=== PATIENT | male | born 1950 | race Two or more races ===

== ENCOUNTER 2024-11-27 00:29 | Inpatient (IN) | payer OTHER ==
[~2024-11-27] VITALS: Ht 182.9 cm; Wt 108.4 kg
[2024-11-27] MEDS ORDERED: ENTRESTO 49 MG1 EACH PO (00:42)
[2024-11-27] MEDS ORDERED: LASIX20 MG PO (00:43)
[2024-11-27] MEDS ORDERED: CARVEDILOL12.5 MG (00:43)
[2024-11-27] MEDS ORDERED: ELIQUIS5 MG PO (00:43)
[2024-11-27] MEDS ORDERED: HYDRALAZINE HC100 MG PO (00:43)
[2024-11-27] MEDS ORDERED: EPLERENONE25 MG PO (00:43)
[2024-11-27] MEDS ORDERED: UROXATRAL10 MG PO (00:44)
[2024-11-27] MEDS ORDERED: FARXIGA10 MG PO (00:44)
[2024-11-27] MEDS ORDERED: OXYBUTYNIN CHLO10 MG PO (00:45)
--- NOTE | 2024-11-27 00:45 | NUR ---
SE RECIBE MASCULINO ALERTA Y ORIENTADO X3 EN [facility] POR CHOLECYSTITIS ACEPTADO POR LA DRA NIEVES. SE MIDEN S/V Y SE UBICA.
[2024-11-27] MEDS ORDERED: 0.9 % SODIUM CHLORIDE 1,000 ML IV ONE (01:30)
--- NOTE | 2024-11-27 01:48 | NUR ---
SE ORIENTA A PACIENTE SOBRE TRATAMIENTO MEDICO, REFIERE ENTENDER. SE COLECTAN MUESTRAS DE LABORATORIO BAJO MEDIDAS ASEPTICAS. PACIENTE PREIAMENTE CANALIZADO EN ANTEBRAZO DORIE. SE COLOCAN IVF'S DIMITRIS ORDEN MEDICA. SE NOTIFICA X-RAY Y SE REALIZA EKG EL CUAL SE PRESENTA A DR BILLS.
[2024-11-27 02:03] LABS: BASO % 0.0 % (0.1-1.2); EOS # 0.00 (0.04-0.54); EOS % 0.0 % (0.7-7.0); LYMPH # 0.81 (1.18-3.74); LYMPH % 20.2 % (19.3-53.1); MEAN PLATELET VOLUME 11.80 fl (9.4-12.4); MONO # 0.10 (0.24-0.82); MONO % 2.5 % (4.7-12.5); NEUT # 3.10 (1.56-6.13); NEUT % 77.3 % (34.0-71.1); RED CELL DISTRIBUTION WIDTH 13.1 % (11.6-14.4)
[2024-11-27 02:22] LABS: INR 1.29
[2024-11-27 02:26] LABS: ALT/SGPT 37.0 U/L (12-78); AST/SGOT 38.0 U/L (15-37); BILIRUBIN TOTAL 4.75 mg/dL (0.3-1.2); BILIRUBIN,CONJUGATED 3.59 mg/dL (0.0-0.2); BUN CREA RATIO 29.0 (7.0-25.0); CREATININE SERUM 1.11 mg/dL (0.70-1.30); GFR 64.58; GLOBULINA 4.4 G/DL (2.4-3.5); GLUCOSE FASTING 172.0 mg/dL (65-100); OSMOLALITY SERUM 290.0 MOSM/KG (275-295)
--- NOTE | 2024-11-27 07:37 | NUR ---
SE RCIBE PTE MASCULINO DE 74 YRS ALERTTA CONCIENTE Y TRANQUILO EN CAMA CON BARANDAS ELEVADA. PTE CONSULTADO CON EL Y PENDIENTE A REALIZAR ESTUIO DEMRI SE OBSERVA P[TE CON IVF'S PATENTE Y SANDRA DE EDEMA. SE ,MANTIENE AL MOENTO SANDRA DE DOLOR.
[2024-11-27 08:54] LABS: URINE APPEARANCE Cloudy; URINE BILIRRUBIN Moderate (NEGATIVE); URINE BLOOD Negative; URINE COLOR Dark Yellow; URINE GLUCOSE Negative (NEGATIVE); URINE KETONE Negative (NEGATIVE); URINE LEUKOCYTE Moderate; URINE NITRATE Positive; URINE UROBILINOGEN 2.0 E.U./dl
[2024-11-27 08:59] LABS: URINE BACTERIA 332.3 uL (0.0-1933); URINE EPITHELIAL CELLS 87.6 uL (0.0-38.8); URINE RBC 10.5 uL (0.0-20.8); URINE WBC 342.8 uL (0.0-23.2)
[2024-11-27 09:09] LABS: URINE CAST 1.31 uL (0.0-1.40); URINE PROTEIN 100 (NEGATIVE)
[2024-11-27] MEDS ORDERED: 0.9 % SODIUM CHLORIDE 1,000 ML IV SCH (11:15)
[2024-11-27] MEDS ORDERED: CARVEDILOL 12.5 MG TABLET PO SCH (11:16)
[2024-11-27] MEDS ORDERED: FAMOTIDINE/PF 20 MG in 0.9 % SODIUM CHLORIDE 8 ML IV PUSH SCH (11:16)
[2024-11-27] MEDS ORDERED: CEFTRIAXONE SODIUM 2,000 MG in 0.9 % SODIUM CHLORIDE 100 ML IV SCH (11:17)
[2024-11-27] MEDS ORDERED: ONDANSETRON HCL 4 MG in 0.9 % SODIUM CHLORIDE 50 ML IV PRN (11:30)
[2024-11-27] MEDS ORDERED: MORPHINE SULFATE 4 MG/ML CARTRIDGE IV PRN (11:30)
[2024-11-27] MEDS ORDERED: CEFTRIAXONE SODIUM 2,000 MG VIAL ONE (12:32)
[2024-11-27] MEDS ORDERED: FAMOTIDINE/PF 20 MG/2 ML VIAL ONE (12:32)
[2024-11-27 13:16] VITALS: BP 142/75; O2SAT 96
[2024-11-27 16:42] VITALS: BP 150/85
[2024-11-27] MEDS ORDERED: PATIENTS OWN MEDICATION (MEDICAMENTO EN PISO) PO SCH (17:00)
[2024-11-28 03:56] VITALS: BP 144/66
[2024-11-28] MEDS ORDERED: DIPHENHYDRAMINE HCL 50 MG/ML VIAL 1ML ONE (08:35)
[2024-11-28] MEDS ORDERED: GLUCAGON 1 MG VIAL ONE (08:36)
[2024-11-28] MEDS ORDERED: IOVERSOL 320 MG/ML - 50 ML VIAL IV ONE (08:36)
[2024-11-28] MEDS ORDERED: PATIENTS OWN MEDICATION (MEDICAMENTO EN PISO) PO SCH (09:00)
[2024-11-28 18:33] VITALS: BP 136/65
[2024-11-28] MEDS ORDERED: FAMOTIDINE/PF 20 MG in 0.9 % SODIUM CHLORIDE 8 ML IV PUSH SCH (21:00)
[2024-11-29 03:56] VITALS: BP 138/75; O2SAT 96
[2024-11-29 08:45] VITALS: BP 144/61
[2024-11-29 13:45] LABS: BASO % 0.3 % (0.1-1.2); EOS # 0.07 (0.04-0.54); EOS % 1.0 % (0.7-7.0); LYMPH # 2.03 (1.18-3.74); LYMPH % 30.0 % (19.3-53.1); MEAN PLATELET VOLUME 12.90 fl (9.4-12.4); MONO # 0.55 (0.24-0.82); MONO % 8.1 % (4.7-12.5); NEUT # 4.08 (1.56-6.13); NEUT % 60.3 % (34.0-71.1); RED CELL DISTRIBUTION WIDTH 13.0 % (11.6-14.4)
[2024-11-29] MEDS ORDERED: PHYTONADIONE 10 MG/ML AMPUL IV NR (14:00)
[2024-11-29 14:48] LABS: ALT/SGPT 49.0 U/L (12-78); AST/SGOT 46.0 U/L (15-37); BILIRUBIN TOTAL 3.56 mg/dL (0.3-1.2); BILIRUBIN,CONJUGATED 2.52 mg/dL (0.0-0.2); BUN CREA RATIO 30.0 (7.0-25.0); CREATININE SERUM 1.25 mg/dL (0.70-1.30); GFR 56.31; GLOBULINA 3.9 G/DL (2.4-3.5); GLUCOSE FASTING 96.0 mg/dL (65-100); OSMOLALITY SERUM 299.0 MOSM/KG (275-295)
[2024-11-29 19:04] VITALS: BP 140/68
[2024-11-30 03:41] VITALS: BP 152/81; O2SAT 95
[2024-11-30 08:13] LABS: INR 1.06
[2024-11-30 08:34] VITALS: BP 162/83
[2024-11-30 19:42] VITALS: BP 173/70
[2024-12-01 02:52] VITALS: BP 144/62; O2SAT 95
[2024-12-01 09:30] VITALS: BP 140/70; O2SAT 98
[2024-12-01 18:16] LABS: BASO % 0.3 % (0.1-1.2); EOS # 0.15 (0.04-0.54); EOS % 2.1 % (0.7-7.0); LYMPH # 1.84 (1.18-3.74); LYMPH % 25.4 % (19.3-53.1); MEAN PLATELET VOLUME 11.80 fl (9.4-12.4); MONO # 0.55 (0.24-0.82); MONO % 7.6 % (4.7-12.5); NEUT # 4.64 (1.56-6.13); NEUT % 63.9 % (34.0-71.1); RED CELL DISTRIBUTION WIDTH 12.5 % (11.6-14.4)
[2024-12-01] MEDS ORDERED: ENALAPRILAT DIHYDRATE 1.25 MG/ML VIAL IV PRN (19:45)
[2024-12-01] MEDS ORDERED: ENALAPRILAT DIHYDRATE 1.25 MG/ML VIAL IV ONE (20:06)
[2024-12-01 23:00] VITALS: BP 151/68
[2024-12-02 02:14] VITALS: BP 158/67; O2SAT 96
[2024-12-02 08:49] VITALS: BP 163/80; O2SAT 93
[2024-12-02] MEDS ORDERED: TRAMADOL HCL 50 MG TABLET PO SCH (09:00)
[2024-12-02] MEDS ORDERED: ACETAMINOPHEN 500 MG GEL..CAP PO PRN (09:00)
[2024-12-02 12:58] LABS: ALT/SGPT 50.0 U/L (12-78); AST/SGOT 50.0 U/L (15-37); BILIRUBIN TOTAL 3.19 mg/dL (0.3-1.2); BUN CREA RATIO 17.0 (7.0-25.0); CREATININE SERUM 1.06 mg/dL (0.70-1.30); GFR 68.11; GLOBULINA 3.9 G/DL (2.4-3.5); GLUCOSE FASTING 154.0 mg/dL (65-100); OSMOLALITY SERUM 292.0 MOSM/KG (275-295)
[2024-12-02 17:52] VITALS: BP 149/68; O2SAT 97
[2024-12-03 03:17] VITALS: BP 150/80; O2SAT 95
[2024-12-03 07:00] VITALS: BP 155/69; O2SAT 93
== END 2024-12-03 12:32 | disposition home or self-care (01) | DRG 417 ==
LOC: ER 00:29 → MEDJ 11:54 → SEC-K 11:54 → MEDJ 12:15
PROVIDERS: General Practice; Internal Medicine; Surgery; ADMIT Internal Medicine; ATTEND Internal Medicine
PROC: BF37ZZZ Magnetic Resonance Imaging (MRI) of Pancreas (ICD-10-PCS; 2024-11-27)
PROC: 0F798ZZ Dilation of Common Bile Duct, Via Natural or Artificial Opening Endoscopic (ICD-10-PCS; 2024-11-28)
PROC: BF10YZZ Fluoroscopy of Bile Ducts using Other Contrast (ICD-10-PCS; 2024-11-28)
PROC: 0FC98ZZ Extirpation of Matter from Common Bile Duct, Via Natural or Artificial Opening Endoscopic (ICD-10-PCS; 2024-11-28)
PROC: XFJB8A7 Inspection of Hepatobiliary Duct using Single-use Duodenoscope, New Technology Group 7 (ICD-10-PCS; 2024-11-28)
PROC: 0FT44ZZ Resection of Gallbladder, Percutaneous Endoscopic Approach (ICD-10-PCS; principal; 2024-12-01 16:30)
DX: K80.10 Calculus of gallbladder with chronic cholecystitis without obstruction (principal); K85.10 Biliary acute pancreatitis without necrosis or infection; I48.20 Chronic atrial fibrillation, unspecified; K74.60 Unspecified cirrhosis of liver; R74.8 Abnormal levels of other serum enzymes; I10 Essential (primary) hypertension; Z79.01 Long term (current) use of anticoagulants